=== PATIENT | female | born 1990 | race Caucasian/White ===

== ENCOUNTER 2023-08-12 03:07 | Outpatient (CLI) | payer MEDICAID, SELFPAY ==
[2023-08-12 15:00] LABS: Panorama Kit Sent via Fed Ex
[2023-08-12 15:09] LABS: Abs Immature Grans 0.04 10^3/uL (0.0-0.06); Absolute Basophil Count 0.03 10^3/uL (0.0-0.2); Absolute Eosinophil Count 0.04 10^3/uL (0.0-0.7); Absolute Monocyte Count 0.49 10^3/uL (0.1-0.8); Absolute Neutrophil Count 6.36 10^3/uL (1.2-6.7); Basophils % 0.3 %; Eosinophils % 0.5 %; HCT 37.7 % (36.0-46.0); HGB 12.8 g/dL (11.2-15.7); Immature Grans % 0.5 %; Lymphocytes % 19.6 %; MCH 29.2 pg (27.0-33.0); MCV 86 fL (80-95); Monocytes % 5.7 %; Neutrophils % 73.4 %; Platelet Count 195 10^3/uL (130-400); RBC 4.39 10^6/uL (3.93-5.22); RDW 12.2 % (11.7-14.6); RDW-SD 38.7 fL; WBC 8.66 10^3/uL (4.4-10.8)
[2023-08-12 15:51] LABS: Glucose,1 Hr (Glucola) 115 mg/dL (80-140)
[2023-08-15 09:35] LABS: Hepatitis C Ab w Rflx HCV PCR Negative (Negative)
[2023-08-15 09:53] LABS: HIV-1/2 Ag & Ab Screen Negative (Negative)
[2023-08-15 12:52] LABS: Hepatitis B Surface Ag Negative (Negative)
[2023-08-15 14:52] LABS: Varicella IgG Antibody Positive (See Note)
[2023-08-15 14:56] LABS: Rubella IgG Ab (UVM) Positive (See Note)
[2023-08-16 16:18] LABS: Syphilis IgG w/Reflex Nonreactive (Nonreactive)
== END 2023-08-12 03:08 | disposition home or self-care (01) ==
LOC: LBO 03:07
PROVIDERS: Advanced Practice Midwife; Visit Provider Advanced Practice Midwife
DX: Z34.91 Encounter for supervision of normal pregnancy, unspecified, first trimester (principal); Z34.90 Encounter for supervision of normal pregnancy, unspecified, unspecified trimester
CPT/HCPCS: 36415; 82950; 86787; 86803; 86850; 86900; 86901; 87340; 87389; 85025; 86762; 86780

== ENCOUNTER 2023-08-12 14:42 | Outpatient (REF) | payer MEDICAID, SELFPAY ==
[2023-08-15 12:50] LABS: Chlamydia Result Negative (Negative); GC Result Negative (Negative)
== END 2023-08-12 14:43 | disposition home or self-care (01) ==
LOC: LBN 14:42
PROVIDERS: Visit Provider Advanced Practice Midwife
DX: Z34.92 Encounter for supervision of normal pregnancy, unspecified, second trimester (principal); Z3A.11 11 weeks gestation of pregnancy; Z11.3 Encounter for screening for infections with a predominantly sexual mode of transmission
CPT/HCPCS: 87491; 87591; 87086

== ENCOUNTER 2023-10-06 02:28 | Outpatient (CLI) | payer BC, SELFPAY ==
--- NOTE | 2023-10-06 07:45 | DI.US_ITS ---
Exam(s) US OB 2-3 TRIMESTER EXAM: US OB 2-3 TRIMESTER CLINICAL HISTORY: , SURVEY, Z34.90. TECHNIQUE: Transabdominal obstetrical ultrasound performed. COMPARISON: US POCUS EXAM from 07/19/2023 FINDINGS: Number of fetuses: One. position: Vertex. Placental grade: 1 Placental location: Anterior. No evidence of previa. BIOMETRIC DATA: BPD: 45mm = 19+ 3 weeks HC: 173mm = 19+ 6 weeks AC: 146mm = 20+ 0 weeks FL: 35mm = 20+ 6 weeks Cisterna Magna: 1.9 mm Cerebellum: 1.7 cm EFW: 343 grms 96% Composite Age: 20+ 0 weeks EDC by US: 23 February 2024 Heart Rate: 147BPM Amniotic fluid : Amount of fluid is within normal limits. ANATOMICAL SURVEY: Four-chambered heart: Unremarkable. LVOT: Unremarkable. RVOT: Unremarkable. Left-sided stomach: Unremarkable. urinary bladder: Unremarkable. Bilateral kidneys: Unremarkable. Three-vessel cord: Not well seen Cord insertion: Not well seen Posterior fossa:Unremarkable. ventricles: Unremarkable. nose: Not well seen lips: Not well seen palate: Unremarkable. spine: Unremarkable. Two arms and two legs: Unremarkable. IMPRESSION: 1. Single live intrauterine gestation as above. 2. Normal anatomic survey. profile, three-vessel cord and cord insertion were not well s een. Patient is scheduled to return 13 October 2023. Additional imaging needed DATA REPOSITORY:
== END 2023-10-06 02:48 ==
PROVIDERS: Visit Provider Advanced Practice Midwife
DX: Z34.90 Encounter for supervision of normal pregnancy, unspecified, unspecified trimester (principal)
CPT/HCPCS: 76805

== ENCOUNTER 2023-12-06 02:51 | Outpatient (CLI) | payer BC, SELFPAY ==
[2023-12-06 10:17] LABS: Absolute Basophil Count 0.04 10^3/uL (0.0-0.2); Absolute Eosinophil Count 0.07 10^3/uL (0.0-0.7); Absolute Lymphocyte Count 1.51 10^3/uL (1.2-3.4); Absolute Monocyte Count 0.46 10^3/uL (0.1-0.8); Absolute Neutrophil Count 7.82 10^3/uL (1.2-6.7); Basophils % 0.4 %; Eosinophils % 0.7 %; HCT 37.2 % (36.0-46.0); HGB 12.3 g/dL (11.2-15.7); MCH 29.9 pg (27.0-33.0); MCHC 33.1 % (32.0-36.0); MCV 91 fL (80-95); MPV 10.7 fL (8.0-11.0); Monocytes % 4.6 %; Neutrophils % 77.3 %; Platelet Count 154 10^3/uL (130-400); RBC 4.11 10^6/uL (3.93-5.22); RDW 12.2 % (11.7-14.6); RDW-SD 40.3 fL
[2023-12-06 10:30] LABS: Glucose,1 Hr (Glucola) 151 mg/dL (80-140)
== END 2023-12-06 02:52 | disposition home or self-care (01) ==
LOC: LBO 02:52
PROVIDERS: Visit Provider Obstetrics & Gynecology
DX: Z34.92 Encounter for supervision of normal pregnancy, unspecified, second trimester (principal)
CPT/HCPCS: 36415; 82950; 85025

== ENCOUNTER 2023-12-16 01:04 | Outpatient (CLI) | payer BC, SELFPAY ==
[2023-12-16 10:29] LABS: Glucose 1 Hour 194 mg/dL
[2023-12-16 12:33] LABS: Glucose 3 Hour 110 mg/dL
== END 2023-12-16 01:05 | disposition home or self-care (01) ==
LOC: LBO 01:05
PROVIDERS: Visit Provider Obstetrics & Gynecology
DX: R73.09 Other abnormal glucose (principal)
CPT/HCPCS: 36415; 82951

== ENCOUNTER 2024-01-10 01:12 | Outpatient (CLI) | payer BC, SELFPAY ==
--- NOTE | 2024-01-10 07:15 | DI.US_ITS ---
Exam(s) US OB RATNA WEIGHT EXAM: US OB RATNA WEIGHT CLINICAL HISTORY: size greater than dates,GEST DIABETES,o24.419. TECHNIQUE: Transabdominal obstetrical ultrasound performed. COMPARISON: US POCUS EXAM from 07/19/2023 US US OB 2-3 TRIMESTER from 10/06/2023 US US OB F/U FACIAL/LVOT/RVOT from 10/13/2023 FINDINGS:: Number of fetuses: 1 position: CEPHALIC Placental location: ANTERIOR No evidence of previa. BIOMETRIC DATA: BPD: 8.47cm, 34weeks 1day HC: 30.66cm, 34weeks 1day AC: 29.3cm, 33weeks 2days FL: 6.33cm, 32weeks 5days EFW: 2,162.91g, 4lb 13.15oz, 54.5% Composite Age: 33weeks 4days LETI: 02/24/2024 Heart Rate: 178bpm Amniotic fluid index: 17.39cm. Visually, amount of fluid is within normal limits. IMPRESSION: size and weight are within the expected range. DATA REPOSITORY:
== END 2024-01-10 01:32 ==
LOC: DI 01:12
PROVIDERS: Visit Provider Obstetrics & Gynecology
DX: O24.410 Gestational diabetes mellitus in pregnancy, diet controlled (principal); Z3A.34 34 weeks gestation of pregnancy
CPT/HCPCS: 76816

== ENCOUNTER 2024-02-06 14:14 | Outpatient (REF) | payer BC, SELFPAY ==
--- NOTE | 2024-02-09 11:39 | W.NUTRFU ---
Date of service: 02/09/24 Time of Service: 11:49 Nutrition Note NOTE: received referral for pt due to elevated glucose in the last 3-4 weeks of gestation. provider request contacting pt nola to review diet mgt as pt would like to avoid insulin the last few weeks of . pregravid weight : 99.1kg height: 68 Pregravid BMI:33.1 Pt with weight gain of ~24lbs at this stage of , exceeding wt gain recommendation of 11-20lbs. Contacted pt over the phone on 02/06 while I was working in the kitchen and was agreeable to email summary with resources sent to her to help with diet modification with goal for total carb intake of 175-200g total carbohydrates per day, keeping fiber at least 25g and added sugar at limit of 25g. Instructions given to seek slower-digesting carbs that are high in fiber and not to eat carbs by themselves - pair with protein and fiber to help with slower rise in glucose. Instructed to avoid sugar in beverages and allow 2-3 hours between eating. Highly encouraged walking after meals or any approved activity to help with glucose utilization after consumption. Pt has my contact info to reach out for any questions Time Spent in Nutritional Counseling and Treatment: 10 minutes
== END 2024-02-06 14:15 | disposition home or self-care (01) ==
LOC: LBN 14:14
PROVIDERS: Visit Provider Obstetrics & Gynecology
DX: Z34.93 Encounter for supervision of normal pregnancy, unspecified, third trimester (principal)
CPT/HCPCS: 00123; 87081

== ENCOUNTER 2024-02-24 08:32 | Inpatient (IN) | payer BC, SELFPAY ==
[2024-02-24] VITALS (70 sets, daily range): BP systolic 107–125; BP diastolic 62–87; PULSE 0–108; RESP 12–18; TEMP 36.6–37; O2SAT 92–100; BMI 37.4
[2024-02-24 09:16] LABS: HGB 12.5 g/dL (11.2-15.7); MCH 29.8 pg (27.0-33.0); MCHC 33.8 % (32.0-36.0); MCV 88 fL (80-95); MPV 11.2 fL (8.0-11.0); Platelet Count 125 10^3/uL (130-400); RBC 4.19 10^6/uL (3.93-5.22); RDW 12.4 % (11.7-14.6); RDW-SD 39.8 fL; WBC 9.72 10^3/uL (4.4-10.8)
--- NOTE | 2024-02-24 10:03 | HPE_ITS ---
Date of service: 02/24/24 Time of Service: 10:03 Assessment and Plan Assessment and plan (1) Gestational diabetes: Status: Acute Assessment and plan: A: 33y.o at 39w2d IOL A1GDM well-controlled, EFW 54%ile at 32wks EFW 7.5#, VTX MIMI GBS Negative Expecting Baby Girl BCM: 8wk PP Mirena P: Admit for labor induction with Cook's cervical balloon and Misoprostol 50mcg. Intermittent Monitoring per protocol. Pain management per patient request. Q4hr blood sugar monitoring once in active labor. anticipated (2) : Status: Acute OB-HPI Labor/Delivery History of Present Illness Reason for Visit: IOL Chief Complaint: Other (None, scheduled IOL). LETI Calculator Estimated Delivery Date Method Current WG Current Estimate 02/29/24 Ultrasound #1 39w 2d Other Estimates 02/20/24 LMP (Uncertain) 40w 4d Comments: Here today for IOL s/t A1GDM. Reviewed IOL methods, recommendations and risks based on Vogt score of 4. Discussed her moderate risk of shoulder dystocia and she was given to opportunity to ask questions. She is here today with LIDIA Burgess. planning Mirena and an epidural for pain management. Pelvis proven to 7lb3oz after IOL with one dose of Misoprostol. History of Present Expected Delivery Route/Plan JEANETTE - , changed to CNM @ 37 wks FOB/ : Aditya Zee (2nd baby together) BG Planning epidural. PP BCM: Mirena at 8wkPP GDM: IOL @ 39 wks, booked for 02/24/24 Specific Issues/Plan 1. BMI 33- early PSL=252 - 32w u/s for S> . EFW 54%tile. RATNA 17, VTX. 2. History of depression, ativan prescription PRN. 3. Colleen and her brother born with extra digits, cousin with spina bifida, FOB's nephew with trsiomy , offered level 2 US and genetic counseling, Colleen declines. 5a. anatomy survey 10/05 incomplete, returned 10/12, all nml, survey completed 4. A1GDM (12/21/23) - well controlled currently with diet changes. 01/10/24 decrease testing to QID twice a week. -02/06/24: multiple elevated 2hr pps and occasional elevated fasting. Pt says she will make diet changes, otherwise may need to consider insulin. 02/13/24: BG well controlled with diet changes, plan 39wk IOL 02/23 cfDNA low risk x5 female, will obtain records from [facility] re: previous CF/SMA: no indication in records from [facility] of SMA or CF testing 5 Ps neg Assessment: History Reviewed & Current Informed Consent Informed Consent: Induction of Labor Review of Systems All systems reviewed & are unremarkable except as noted in HPI and below PFSH All Active Problems (Updated 02/24/24 @ 10:10 by Jennifer Rowe CNM) Gestational diabetes (Acute) Begin testing 12/16/2023 BMI 33.0-33.9,adult (Acute) (Acute) Medical History 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 Depression Lexapro in the past, xanax PRN, ativan PRN during Surgical History H/O toe surgery Family History Father Hypertension Cancer sarcoma Heart murmur Maternal Grandfather Prostate cancer Maternal Uncle Prostate cancer Maternal Uncle Prostate cancer Maternal Uncle Prostate cancer Social History Smoking/Tobacco Use Status: Never Smoking risk assessment performed?: Yes Alcohol Intake: never Drug use: Never Substance use type: does not use Adopted: No Caregiver/Support person: No Foster care: No Household members: spouse and children Housing: apartment Number of Children: 1 Communication Needs: None Education Level: college Details: Bachelor's Do you need help understanding health information?: Rarely current occupation: [employer] Pets and animals: Yes (1) Pets and animals: dog(s) Sexually active: Yes Do you think of yourself as: straight/heterosexual Current gender identity: female What is your relationship status?: How often do you talk on the phone with friends or family?: three or more times per week How often do you get together with friends or relatives?: three or more times per week How often do you attend mandaen or muslim services?: decline to answer Do you belong to any clubs or organized social groups?: no Panel score (0-1 are the most socially isolated patients): 2 What type of physical activity do you participate in: regular exercise Duration: 30-45 minutes/day Frequency: 3-[address]/Sabianism: None Seatbelt use: always Helmet use: Yes Helmet use: always Drive intox or ride w/intox customer service driver: No Do you feel safe at home: Yes Do you feel safe in your relationship?: Yes Female Reproductive History Menstrual Age of Menarche: 15 control method: none History History 2 Para 1 Hx # Term Pregnancies 1 Multiple births Hx # Pregnancies Ectopic pregnancies AB induced Hx Number of Living Children 1 AB spontaneous Past Pregnancies Del. Date GA/Weeks # Preg Succ Route Wgt Sex Labor Lgth Anesth esia Location [facility] 12/08/21 41 No Yes vaginal 7 lb 3 oz Female 8 [place], [place], induction of labor with misoprostol Delivery Date: 12/08/21 Last Updated by: Heidy Rothman CNM [place] 2 - vessel cord Meds Allergies and Home Medications Allergies Allergy/AdvReac Type Severity Reaction Status Date / Time No Known Allergies Allergy Verified 02/22/24 12:41 Home Medications ?Medication ?Instructions ?Recorded ?Confirmed ?Type albuterol sulfate 90 mcg/actuation 1 inh inhalation ONCE 07/06/23 02/24/24 History aerosol inhaler famotidine 20 mg tablet 20 mg PO DAILY 07/06/23 02/24/24 History (Zantac-360 (famotidine)) lorazepam 0.5 mg tablet (Ativan) 0.5 mg PO DAILY PRN 07/06/23 02/24/24 History vit 168-iron 27 mg-folic cap PO 07/06/23 02/22/24 History acid 800 mcg-omega3 235 mg capsule (One-A-Day -1) blood-glucose meter #1 ea 12/16/23 02/24/24 Rx lancets #100 ea 01/10/24 02/24/24 Rx blood sugar diagnostic (Blood #50 ea 02/13/24 02/24/24 Rx Glucose Test strips) Exam Physical Exam Vital signs: Temp Pulse Resp BP 97.9 F 108 H 12 125/76 02/24/24 08:39 02/24/24 08:39 02/24/24 08:39 02/24/24 08:39 Vital Signs Reviewed: Yes Constitutional Constitutional: no acute distress Detailed Labor and Delivery Exam Dilation: 1.5 Effacement (%): 50 station: -4 Position: MIMI Cervix position: mid Consistency: medium Vogt Score: Cervical Points Exam 0 1 2 3 Dilation Closed 1-2cm 3-4 cm 5-6cm Effacement 0-30% 40-50% 60-70% 80% Consistency Firm Medium Soft Station -3 -2 -1,0 +1,+2 Position Posterior Mid Anterior VOGT Score(Cervical Ripeness Score): 4 Amniotic Membrane Status: Intact Monitor Mode: External Contraction Frequency(min): none Fetus A Heart Rate Baseline: 140 Monitor Accelerations: Present Monitor Decelerations: None Variability: Moderate (6-25 BPM) Presentation: Vertex Categories: Category I Est. Weight: 7 lb 8 oz Respiratory Exam Respiratory Exam: Normal Cardiovascular Exam Cardiovascular Exam: Normal Detailed Exam External: Present normal urethra appearance Extremities Exam Extremities Exam: Normal (minimal edema bilaterally) Results Results Group Beta Strep: Negative Blood Type: B+ Rubella Status: Immune Varicella Immunity: Immune Abnormal Lab Findings: Abnormal Labs 02/24/24 09:00 Plt Count 125 L MPV 11.2 H Risk Assessment Risk for Shoulder Dystocia Historical/Initial OB: POSITIVE FOR: Pre- BMI>30; NEGATIVE FOR: Pelvic Abnormality, Previous Shoulder Dystocia or Previous Macrosomia 36 Weeks: POSITIVE FOR: Current Gestational DM 40 Weeks: NEGATIVE FOR: EFW> 4500 gms, Maternal Weight Gain >40lb or Post Dates Increased Risk?: Yes Counseling: completed 02/22/24 Delivery Plan @ 36wks: IOL 39wks Risk for Pre-Eclampsia Yes, if one or more: NEGATIVE FOR: Hx Pre-E/Gest HTN, Chronic HTN, Multiple Gestation, Pre-gestational DM, Renal Disease, Systemic Lupus or APA Syndrome Yes, if 2 or more: POSITIVE FOR: BMI>30; NEGATIVE FOR: Nulliparity, Age>= 35 yrs, >10yr btwn pregnancies, ethinicty, Mother/Sister w/ Pre-E or Previous IUGR Risk for Post- Hemorrhage Initial: NEGATIVE FOR: Multiple Gestation, Previous PPH, Known Clotting Deficiency, Grand Multiparity or Anticoagulation 40 Weeks: POSITIVE FOR: Low platelets (thrombocytopenia) (125); NEGATIVE FOR: Anemia, hgb<10, Gestation HTN or Pre-E, Polyhydraminios or EFW>4500gms Counseled re: Active Management: Yes Risks Reviewed Risks Reviewed Upon Admission: Yes
[2024-02-24] MEDS: miSOPROStol 25 MCG TAB 50 MCG PO ×3 (10:28→18:46)
--- NOTE | 2024-02-24 14:49 | W.PM.OBNL1 ---
Date of service: 02/24/24 Time of Service: 14:49 Informed Consent Informed Consent: Induction of Labor Pelvic Exam Comments: SVE deferred Contractions Contraction Frequency(min): irregular Fetus A Monitor: External (US) Heart Rate Baseline: 145 Presentation: Vertex Variability: Moderate (6-25 BPM) Categories: Category I FHR Rhythm: Regular Characteristics: Normal Accelerations: Present Decelerations: None Amniotic Membrane Status: Intact Assessment and Plan Assessment and plan (1) Gestational diabetes: Status: Acute Assessment and plan: A: at 39wk2d, IOL A1GDM s/p Cook's Balloon and Miso x 1 P: Continue Misoprostol per protocol. Reassess 4 hours Objective Abnormal lab results 02/24/24 Range/Units 09:00 Plt Count 125 L (130-400) 10^3/uL MPV 11.2 H (8.0-11.0) fL Temp Pulse Resp BP 97.9 F 89 12 125/76 02/24/24 08:39 02/24/24 10:34 02/24/24 08:39 02/24/24 08:39 Laboratory Results WBC 9.72 10^3/uL (4.4-10.8) 02/24/24 09:00 RBC 4.19 10^6/uL (3.93-5.22) 02/24/24 09:00 Hgb 12.5 g/dL (11.2-15.7) 02/24/24 09:00 Hct 37.0 % (36.0-46.0) 02/24/24 09:00 MCV 88 fL (80-95) 02/24/24 09:00 MCH 29.8 pg (27.0-33.0) 02/24/24 09:00 MCHC 33.8 % (32.0-36.0) 02/24/24 09:00 RDW 12.4 % (11.7-14.6) 02/24/24 09:00 Plt Count 125 10^3/uL (130-400) L 02/24/24 09:00 MPV 11.2 fL (8.0-11.0) H 02/24/24 09:00 ABO/Rh B Positive 02/24/24 09:00 Antibody Screen NEGATIVE 02/24/24 09:00 Vital Signs Reviewed: Yes Notable Details: mild thrombocytopenia Subjective Patient Reports: No new Complaints Interval history since last seen: Patient ambulated in hallway and in room. Cervical balloon spontaneously fell out at 1429. +bloody show. Feeling intermittent contractions, no regular pattern. Results Hemoglobin/Hematocrit: Hgb 12.5 g/dL (11.2-15.7) 02/24/24 09:00 Hct 37.0 % (36.0-46.0) 02/24/24 09:00 Abnormal Lab Findings: Abnormal Labs 02/24/24 09:00 Plt Count 125 L MPV 11.2 H
--- NOTE | 2024-02-24 17:06 | W.PM.OBNL1 ---
Date of service: 02/24/24 Time of Service: 17:06 Informed Consent Informed Consent: Induction of Labor Pelvic Exam Dilation: 4 Effacement (%): 50 station: -3 Position: LOT Cervix Position: mid Consistency: medium BISHOPS Score(Cervical Ripeness Score): 5 Contractions Monitor Mode: External Contraction Frequency(min): irregular Intensity: Mild Fetus A Monitor: External (US) Heart Rate Baseline: 135 Variability: Moderate (6-25 BPM) Categories: Category I FHR Rhythm: Regular Characteristics: Normal Accelerations: 15 X 15 (prolonged accel x 2.5min at 1556) Decelerations: None Amniotic Membrane Status: Intact Assessment and Plan Assessment and plan (1) Gestational diabetes: Status: Acute Assessment and plan: A: IOL A1GDM Not in Labor S/p Cervical Balloon and Miso x 2 Next dose due 1830 Vital Score 5 P: Continue cervical ripening until vital score of 6, discussed AROM and Pitocin as next steps in IOL with progressive cervical change. Reassess 2-4 hours. Objective Abnormal lab results 02/24/24 Range/Units 09:00 Plt Count 125 L (130-400) 10^3/uL MPV 11.2 H (8.0-11.0) fL Temp Pulse Resp BP Pulse Ox 98.6 F 88 18 118/69 98 02/24/24 15:36 02/24/24 15:39 02/24/24 15:36 02/24/24 15:36 02/24/24 15:36 Laboratory Results WBC 9.72 10^3/uL (4.4-10.8) 02/24/24 09:00 RBC 4.19 10^6/uL (3.93-5.22) 02/24/24 09:00 Hgb 12.5 g/dL (11.2-15.7) 02/24/24 09:00 Hct 37.0 % (36.0-46.0) 02/24/24 09:00 MCV 88 fL (80-95) 02/24/24 09:00 MCH 29.8 pg (27.0-33.0) 02/24/24 09:00 MCHC 33.8 % (32.0-36.0) 02/24/24 09:00 RDW 12.4 % (11.7-14.6) 02/24/24 09:00 Plt Count 125 10^3/uL (130-400) L 02/24/24 09:00 MPV 11.2 fL (8.0-11.0) H 02/24/24 09:00 ABO/Rh B Positive 02/24/24 09:00 Antibody Screen NEGATIVE 02/24/24 09:00 Subjective Interval history since last seen: Coping: comfortable, infrequent contractions after 2 doses of misoprostol, some bloody show after Cook's balloon expelled, Activity: up OOB, walking, using ball FOB Aditya at bedside Results Hemoglobin/Hematocrit: Hgb 12.5 g/dL (11.2-15.7) 02/24/24 09:00 Hct 37.0 % (36.0-46.0) 02/24/24 09:00 Abnormal Lab Findings: Abnormal Labs 02/24/24 09:00 Plt Count 125 L MPV 11.2 H
--- NOTE | 2024-02-24 17:48 | ANES.PREOP_ITS ---
General Info Date of Service Date Performed: 02/24/24 Height: 5 ft 8 in Weight: 111.584 kg Body Mass Index (BMI): 37.4 Meds Allergies and Home Medications Allergies Allergy/AdvReac Type Severity Reaction Status Date / Time No Known Allergies Allergy Verified 02/22/24 12:41 Home Medication ?Medication ?Instructions ?Recorded albuterol sulfate 90 mcg/actuation 1 inh inhalation ONCE 07/06/23 aerosol inhaler famotidine 20 mg tablet 20 mg PO DAILY 07/06/23 (Zantac-360 (famotidine)) lorazepam 0.5 mg tablet (Ativan) 0.5 mg PO DAILY PRN 07/06/23 vit 168-iron 27 mg-folic cap PO 07/06/23 acid 800 mcg-omega3 235 mg capsule (One-A-Day -1) blood-glucose meter #1 ea 12/16/23 lancets #100 ea 01/10/24 blood sugar diagnostic (Blood #50 ea 02/13/24 Glucose Test strips) Current Visit Medications: Current Medications Generic Name Dose Route Start Last Admin Trade Name Freq PRN Reason Stop Dose Admin Famotidine 20 mg 02/25/24 08:30 Famotidine 20 Mg Tab PO DAILY CASS Ringer's Solution 1,000 mls @ 125 mls/hr 02/25/24 06:00 IV INFUSION [facility] IV Miscellaneous Supplies 1 each 02/24/24 08:45 Iv Access IV DIRECTED CASS Misoprostol 50 mcg 02/24/24 10:00 02/24/24 14:45 Misoprostol 25 Mcg Tab PO 50 mcg Q4H CASS Administration Sodium Chloride 0 ml 02/24/24 08:36 Normal Saline Flush 10 Ml Syr IVP PRN PRN Sodium Chloride 0 ml 02/24/24 08:36 Normal Saline Flush 10 Ml Syr IVP PRN PRN Sodium Chloride 0 ml 02/24/24 20:00 Normal Saline Flush 10 Ml Syr IVP BID CASS Sodium Chloride 0 ml 02/24/24 08:36 Normal Saline 10 Ml Vial IJ DIRECTED PRN Terbutaline Sulfate 0.25 mg 02/24/24 09:34 Terbutaline 1 Mg/Ml Vial SC PRN PRN Zolpidem Tartrate 10 mg 02/24/24 21:00 Zolpidem 5 Mg Tab PO 02/25/24 06:00 2100 CASS PFSH Active Problems Active Problems: Problem Status Onset Code Gestational diabetes Acute O24.419 BMI 33.0-33.9,adult Acute Z68.33 Acute Z34.90 Medical History Medical History 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 Date GA/Weeks # Preg Succ Route Wgt Sex Labor Lgth Anesth esia Location [facility] 12/08/21 41 No Yes vaginal 3260.195 g Female 8 [place], [place], induction of labor with misoprostol Delivery Date: 12/08/21 Last Updated by: Heidy Rothman CNM [place] 2 - vessel cord Vital Signs and Lab Results Vital Signs Most Recent Vital Signs in EMR: Most Recent Vital Signs Temp Pulse Resp BP Pulse Ox 37.0 C 88 18 118/69 98 02/24/24 15:36 02/24/24 15:39 02/24/24 15:36 02/24/24 15:36 02/24/24 15:36 Lab Results 02/24/24 09:00 Blood Type / Crossmatch: 2 Antibody Screen NEGATIVE 02/24/24 Complete Blood Count: 2 White Blood Count 9.72 10^3/uL (4.4-10.8) 02/24/24 09:00 Red Blood Count 4.19 10^6/uL (3.93-5.22) 02/24/24 09:00 Hemoglobin 12.5 g/dL (11.2-15.7) 02/24/24 09:00 Hematocrit 37.0 % (36.0-46.0) 02/24/24 09:00 Platelet Count 125 10^3/uL (130-400) L 02/24/24 09:00 Complete Metabolic Panel: 2 No Data to Display Liver Function Panel: 2 No Data to Display Coagulation Panel: 2 No Data to Display Cardiac Panel: 2 No Data to Display Arterial Blood Gas: 2 No Data to Display Venous Blood Gas: 2 No Data to Display Pancreas Panel: 2 No Data to Display Thyroid Panel: 2 No Data to Display Infectious Disease: 2 No Data to Display Blood Cultures: 2 No Data to Display Toxicology Panel: 2 No Data to Display Panel: 2 No Data to Display Anesthesia Assessment and Plan Anesthesia History Personal History: No History of General Anesthesia Family History: No Family History of Anesthesia Complications Exercise Tolerance Exercise Tolerance: Metabolic Equivalents>4 Pertinent Negatives Pertinent Negatives: No Major Cardiovascular Symptoms or Complaints and No Major Pulmonary Symptoms or Complaints Cardiac & Pulmonary Exam Cardiac Exam: Normal S1/S2 Heart Sounds Pulmonary Exam: Clear Bilateral Breath Sounds Implantable Cardiac Device Does patient have a Pacemaker or an ICD?: No Airway Exam Known Difficult Airway: No Mallampati Class: 2 Mouth Opening: Narrow (< 3cm) Thyromental Distance: Greater than 3 cm Neck Range of Motion: Full ROM Neck Circumference: Normal Teeth Condition: Normal Dentition ASA Classification ASA Score: ASA 2 Emergency Case?: No NPO Status NPO Status: NPO Clears >2 hours, Solids >8 hours Status Status: Confirmed Anesthesia Plan Resuscitation Status: Full Code Anesthesia Technique: Epidural Anesthesia Airway Planned: Natural Airway Monitors Used: Standard Monitors Preoperative Comments:: Previous epidural placement in [facility] without incident. Patient is current induction, will page with epidural requested.
--- NOTE | 2024-02-24 20:53 | W.PM.OBNL1 ---
Date of service: 02/24/24 Time of Service: 20:53 Informed Consent Informed Consent: Induction of Labor Pelvic Exam Dilation: 5 Effacement (%): 75 station: -2 Cervix Position: posterior Consistency: medium BISHOPS Score(Cervical Ripeness Score): 7 Contractions Contraction Frequency(min): irregular Contraction Duration(sec): 60-70 Intensity: Mild/Moderate Fetus A Monitor: External (US) Heart Rate Baseline: 145 Variability: Moderate (6-25 BPM) Categories: Category I FHR Rhythm: Regular Accelerations: Present Decelerations: None Amniotic Membrane Status: Ruptured (clear, ) Rupture Method: Artifical Amniotic Fluid: Winters Tinged Amount: minimal Date of Membrane Rupture: 02/24/24 Time of Membrane Rupture: 20:33 Assessment and Plan Assessment and plan (1) Gestational diabetes: Status: Acute Assessment and plan: A: A1GDM IOL AROM 2032 S/P Miso x3 P: Start Pitocin @ 2240 or when 4 hours after last dose of Misoprostol Early epidural anticipated (2) : Status: Acute Objective Abnormal lab results 02/24/24 Range/Units 09:00 Plt Count 125 L (130-400) 10^3/uL MPV 11.2 H (8.0-11.0) fL Temp Pulse Resp BP Pulse Ox 98.6 F 85 18 120/87 98 02/24/24 15:36 02/24/24 20:40 02/24/24 15:36 02/24/24 20:40 02/24/24 15:36 Laboratory Results WBC 9.72 10^3/uL (4.4-10.8) 02/24/24 09:00 RBC 4.19 10^6/uL (3.93-5.22) 02/24/24 09:00 Hgb 12.5 g/dL (11.2-15.7) 02/24/24 09:00 Hct 37.0 % (36.0-46.0) 02/24/24 09:00 MCV 88 fL (80-95) 02/24/24 09:00 MCH 29.8 pg (27.0-33.0) 02/24/24 09:00 MCHC 33.8 % (32.0-36.0) 02/24/24 09:00 RDW 12.4 % (11.7-14.6) 02/24/24 09:00 Plt Count 125 10^3/uL (130-400) L 02/24/24 09:00 MPV 11.2 fL (8.0-11.0) H 02/24/24 09:00 ABO/Rh B Positive 02/24/24 09:00 Antibody Screen NEGATIVE 02/24/24 09:00 Vital Signs Reviewed: Yes Subjective Interval history since last seen: No significant manager of change the last 4 hours, occasional irregular contractions, last dose of misoprostol at 1840. Good cervical change to 5/75/-2, recommended AROM and Pitocin. Reviewed risks, alternatives and benefits, all patient questions answered. Successful AROM 2032. 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 Results Hemoglobin/Hematocrit: Hgb 12.5 g/dL (11.2-15.7) 02/24/24 09:00 Hct 37.0 % (36.0-46.0) 02/24/24 09:00 Abnormal Lab Findings: Abnormal Labs 02/24/24 09:00 Plt Count 125 L MPV 11.2 H
[2024-02-24] MEDS: Normal Saline Flush 10 ML SYR IVP (21:15)
[2024-02-24] MEDS: Lactated Ringers 500 ML IV (21:50)
--- NOTE | 2024-02-24 22:48 | PGE_ITS ---
Date of service: 02/24/24 Time of Service: 22:48 Informed Consent Informed Consent: Induction of Labor Pelvic Exam Comments: deffered Contractions Monitor Mode: External Contraction Frequency(min): 3-4 Contraction Duration(sec): 40-50 Intensity: Mild/Moderate Fetus A Monitor: External (US) Heart Rate Baseline: 140 Variability: Moderate (6-25 BPM) Categories: Category I Accelerations: Absent Decelerations: None Amniotic Membrane Status: Ruptured Assessment and Plan Assessment and plan (1) Gestational diabetes: Status: Acute Assessment and plan: A: A1GDM IOL AROM 2032 Cat [address] P: Start Pitocin at 2 mU/min, reassess 4-6hrs. Patient and FOB to rest. (2) : Status: Acute Objective Abnormal lab results 02/24/24 Range/Units 09:00 Plt Count 125 L (130-400) 10^3/uL MPV 11.2 H (8.0-11.0) fL Temp Pulse Resp BP Pulse Ox 98.6 F 85 18 113/70 100 02/24/24 15:36 02/24/24 22:45 02/24/24 15:36 02/24/24 22:45 02/24/24 22:44 Laboratory Results WBC 9.72 10^3/uL (4.4-10.8) 02/24/24 09:00 RBC 4.19 10^6/uL (3.93-5.22) 02/24/24 09:00 Hgb 12.5 g/dL (11.2-15.7) 02/24/24 09:00 Hct 37.0 % (36.0-46.0) 02/24/24 09:00 MCV 88 fL (80-95) 02/24/24 09:00 MCH 29.8 pg (27.0-33.0) 02/24/24 09:00 MCHC 33.8 % (32.0-36.0) 02/24/24 09:00 RDW 12.4 % (11.7-14.6) 02/24/24 09:00 Plt Count 125 10^3/uL (130-400) L 02/24/24 09:00 MPV 11.2 fL (8.0-11.0) H 02/24/24 09:00 ABO/Rh B Positive 02/24/24 09:00 Antibody Screen NEGATIVE 02/24/24 09:00 Subjective Interval history since last seen: Successful epidural now in place, [employer] currently bolusing epidural per patient's lateral discomfort. Contractions q3-4 min and stronger. Results Hemoglobin/Hematocrit: Hgb 12.5 g/dL (11.2-15.7) 02/24/24 09:00 Hct 37.0 % (36.0-46.0) 02/24/24 09:00 Abnormal Lab Findings: Abnormal Labs 02/24/24 09:00 Plt Count 125 L MPV 11.2 H
[2024-02-24] MEDS: Oxytocin/Normal Saline 30 UNIT/500 ML BAG 2 UNITS IV (22:50)
[2024-02-24] MEDS: FentaNYL/ROPIvacaine 2 mcg/ml and 0.1% 200 ML CADD Cassette EP (22:51)
--- NOTE | 2024-02-24 23:02 | ANES.NEUR_ITS ---
Epidural/Spinal Catheter Date Performed: 02/24/24 Procedure Start: 22:20 Procedure Stop: 22:53 Requesting Provider: Jennifer Rowe Procedure Location: Obstetrics Reason Performed: Labor Epidural Standard Monitors Applied: Blood Pressure, SpO2 and See EMR for corresponding vital signs Patient Position: Sitting Sedation Given (Indicate Dose Given): No Sedation given Patient Mental Status: Awake Sterility: Hand Hygiene, Surgical Cap, Surgical Mask, Sterile Gloves, Sterile Drape/Sheet and Chlorhexidine Procedure Location: L2-L3 Interspace Epidural Needle: Tuohy 18 Gauge Needle Length: 3.5 Inch Needle Approach: Midline Epidural Procedure: Skin Prepped, Sterile Drape Placed, 1% Lidocaine to skin and subcutaneous tissue with 25G needle, Tuohy Needle placed, KASANDRA to Saline Used, Epidural Catheter Placed, Negative Heme, Negative CSF Flow and Tuohy Needle Removed Catheter Placed?: Catheter Placed Test Dose (Indicate Dose Given): 3ml 1.5% Lidocaine with 1:200K Epinephrine Given Loss of Resistance Depth (cm): 9 Catheter depth at skin (cm): 16 Dressing: [place]aview Dressing Placed and Mastisol Used Epidural Provider Bolus (Indicate Dose Given): Total bolus dose given in 3- 5 ml divided doses and Total Ropivacaine 0.1% with Fentanyl 2mcg/ml Given from pump. (ml) Dose:: 13mL Additives (Indicate Dose Given ): None Infusion Medication: No Infusion Started Block Level: N/A Paresthesia: Right Paresthesia Duration: Transient (x2, less than 1cm into the skin) Ultrasound: Not Used Number of Attempts (See previous attempts in note section): 3 Procedure Tolerated: No Complications Procedure Outcome: Successful Procedure Comment:: First two attempts I applied LA to the skin and then after initially placing the touhy needle, the patient reported right sided paresthesia. Position change made after second attempt with good success. Performed By: Marquita Martinez
[2024-02-25] VITALS (20 sets, daily range): BP systolic 106–125; BP diastolic 56–78; PULSE 70–95; RESP 17; TEMP 36.9; O2SAT 99–100
--- NOTE | 2024-02-25 00:44 | W.OBDELIVERY ---
Date of service: 02/25/24 Time of Service: 00:44 OB Labor/ Delivery Information Baby A Delivery Delivery Method: Spontaneaous Presentation: Vertex Cephalic Position: Vertex Vertex Position: Right Occipital Anterior Cord Description-Baby A: 3 Vessels Amniotic Fluid: Clear Estimated Blood Loss: 200 Delivery Outcome: Liveborn Infant Complications: none Note: FHTs 130s-140s during first stage of labor. FHTs 140s in second stage. Pitocin up to max of 4mU/min. She progressed to full dilation and pushed once. Second stage huddle was done. Spontaneous delivery of female infant delivered in PHYLICIA position. Baby was placed on mother's abdomen and dried and stimulated. Spontaneous cry. 9/9. Cord was clamped and cut by Aditya (FOCuong) at about 6 minutes of life. The placenta delivered spontaneously and appears to by intact with a three vessel cord. Pitocin was administered after delivery of the placenta. The perineum was inspected and reveals a first degree perineal laceration unrepaired.The baby did breastfeed. After delivery, Mother and baby and father of the baby were stable and bonding well in the delivery room and there were no complications. Providers Nurse Solar Project Coordination Specialist: Jennifer Rowe Newspaper Correspondent: Marquita Martinez Nurse: Tiffany Monaco Nurse: Ashleigh Armendariz Labor/Delivery Information Number of Babies in Womb: 1 Steroids Given: None Reason Steroids Not Administered: N/A Group Beta Strep: N/A Antibiotics Administered: No Rubella Status: Immune Blood Type: B+ Varicella Immunity: Immune Maternal Complications: None Shoulder Dystocia: No Stages of Labor Onset of Labor Date: 02/24/24 Onset of Labor Time: 08:25 Complete Dilatation Date: 02/25/24 Complete Dilatation Time: 00:23 Labor - Stage 1 Duration: 15 hours and 58 minutes ROM Baby A: 02/24/24 ROM Baby A: 20:33 ROM Total Time- Baby A: [id number] Delivery Date-Baby A: 02/25/24 Delivery Time-Baby A: 00:26 Labor Stage 2 Duration: 3 minutes Placenta Delivery Date-Baby A: 02/25/24 Placenta Delivery Time-Baby A: 00:35 Labor-Stage 3 Duration: 9 minutes Total Length of Labor-Baby A: 16 hours and 1 minutes Placenta Status: Delivered Baby A Gender: Female Gestational Status: Term (39-41.6 wks) Gestational Age in Weeks/Days: 39 Weeks and 3 Days Score-1 Minute Interval(Baby A) Heart Rate-1 minute: 100 BPM or Greater Respiratory Effort- 1 minute: Spontaneous/Strong Cry Muscle Tone-1 minute: Active Movement Reflex Response-1 minute: Prompt Response Color-1 minute: Bluish Hands or Feet Total Score-1 minute: 9 Score-5 Minute Interval(Baby A) Heart Rate- 5 minute: 100 BPM or Greater Respiratory Effort-5 minute: Spontaneous/Strong Cry Muscle Tone-5 minute: Active Movement Reflex Response-5 minute: Prompt Response Color-5 minute: Bluish Hands or Feet Total Score- 5 minute: 9
[2024-02-25] MEDS: Oxytocin/Normal Saline 30 UNIT/500 ML BAG 95 UNITS IV (00:57)
[2024-02-25] MEDS: Dibucaine 1% 28 GM TUBE TP (04:58)
[2024-02-25] MEDS: Ibuprofen 600 MG TAB PO ×2 (04:59→17:15)
[2024-02-25] MEDS: Acetaminophen 325 MG TAB 650 MG PO (04:59)
[2024-02-25] MEDS: Hamamelis Leaf/Glycerin 100 EACH BOX PR (04:59)
--- NOTE | 2024-02-25 13:24 | OBPPV_ITS ---
Date of service: 02/25/24 Time of Service: 13:24 Assessment and Plan Assessment and plan (1) Lactating mother: Status: Acute Assessment and plan: Caring for baby independently. Pain is managed well with oral analgesics. Voiding without difficulty. well. A - stable mother and baby , Post day 1 P - Discharge to home tomorrow morning . Subjective Subjective Interval history: Got about 4 hours of sleep after delivery with some naps this morning. infant is latching and colostrum in present. She is a confident mother, hand expressing and spoon feeding as needed per sleepy . Minimal pain managed with PO medications, voiding without difficulty, BM today. Tolerating a regular diet without issue. Dischargre teaching done Patient comments: No complaints, Pain well controlled, Tolerating diet and Bowel Movement Patient's Mood: joyous, calm [place] baby status: Doing well, Nursing well, Rooming in and Strong Bonding Observed feeding status: Exclusively breast feeding and Cup Feeding (if sleepy at breast) Exam Physical Exam Vital signs: Temp Pulse Resp BP Pulse Ox 98.5 F 91 H 17 112/68 99 02/25/24 08:40 02/25/24 08:40 02/25/24 08:40 02/25/24 08:40 02/25/24 08:40 Vital Signs Reviewed: Yes Constitutional Constitutional: no acute distress Breast Exam Bilateral: Breast Exam: Normal and Soft Nipple Exam: Normal (everted) Respiratory Exam Respiratory Exam: Normal Fundal Exam Fundus: Below Umbilicus and Firm Extremities Exam Extremity Exam: Normal and Full ROM Psychiatric Exam Psychiatric Exam: Normal Results Hemoglobin/Hematocrit: Hgb 12.5 g/dL (11.2-15.7) 02/24/24 09:00 Hct 37.0 % (36.0-46.0) 02/24/24 09:00 Abnormal Lab Findings: Abnormal Labs 02/24/24 09:00 Plt Count 125 L MPV 11.2 H
[2024-02-26 08:00] VITALS: BP 109/70; PULSE 85; RESP 16; TEMP 36.5; O2SAT 99
--- NOTE | 2024-02-26 08:51 | W.ANESPOSTOP ---
Postoperative Evaluation Date, Time and Location Date Performed: 02/26/24 Time Performed: 08:35 Patient Location: Obstetrics Vital Signs Most Recent Imported Vital Signs: Most Recent Vital Signs Temp Pulse Resp BP Pulse Ox 36.5 C 85 16 109/70 99 02/26/24 08:00 02/26/24 08:00 02/26/24 08:00 02/26/24 08:00 02/26/24 08:00 Assessment Mental Status: Awake (Alert & Oriented to Patient Baseline) Airway and Respiratory Function: Patent airway with normal (patient baseline) respiratory exam Cardiovascular Function: Hemodynamically Stable Hydration Status: Adequately Hydrated Nausea & Vomiting: No Nausea or Vomiting Pain: Pain is tolerable per patient (Patient reports muscular discomfort at the site of epidural insertion) Peripheral Nerve Block: Patient did not receive a nerve block
--- NOTE | 2024-02-26 08:51 | W.PM.OBPNV1 ---
Date of service: 02/26/24 Time of Service: 08:51 Assessment and Plan Assessment and plan (1) Lactating mother: Status: Acute Assessment and plan: Caring for baby independently. Pain is managed well with oral analgesics. Voiding without difficulty. well. A - stable mother and baby , Post day 2 P - Discharge to home, discharge teaching done. Plan 6wk PP visit and 8wk IUD insertion. Pt to schedule herself Subjective Subjective Interval history: Pain managed well. Requests refill on Pepcid rx. cluster feeding overnight. Patient's Mood: pleasant, calm [place] baby status: Doing well, Nursing well, Rooming in and Strong Bonding Observed feeding status: Exclusively breast feeding Exam Physical Exam Vital signs: Temp Pulse Resp BP Pulse Ox 97.7 F 85 16 109/70 99 02/26/24 08:00 02/26/24 08:00 02/26/24 08:00 02/26/24 08:00 02/26/24 08:00 Vital Signs Reviewed: Yes Constitutional Constitutional: no acute distress Breast Exam Bilateral: Breast Exam: Normal and Soft Respiratory Exam Respiratory Exam: Normal Cardiovascular Exam Cardiovascular Exam: Normal Fundal Exam Fundus: Below Umbilicus and Firm Exam External: Present normal urethra appearance Extremities Exam Extremity Exam: Normal and Full ROM Psychiatric Exam Psychiatric Exam: Normal Additional findings Additional findings: deffered Results Hemoglobin/Hematocrit: Hgb 12.5 g/dL (11.2-15.7) 02/24/24 09:00 Hct 37.0 % (36.0-46.0) 02/24/24 09:00 Abnormal Lab Findings: Abnormal Labs 02/24/24 09:00 Plt Count 125 L MPV 11.2 H Hemorrrhage Note IV Site Left Forearm: IV Catheter Gauge: 18
--- NOTE | 2024-02-26 08:54 | W.PM.OBDISCH ---
Date of service: 02/26/24 Time of Service: 08:54 DS: Diagnosis Discharge Diagnosis (1) Lactating mother: Status: Acute Asessment and Plan: Caring for baby independently. Pain is managed well with oral analgesics. Voiding without difficulty. well. A - stable mother and baby , Post day 2 P - Discharge to home. Routine post instructions. [facility] Discharge Plan Disposition Patient Disposition: Home Condition: Good Discharge Details Reason For Visit: IOL Admit Date/Time: 02/24/24 08:32 Admit Provider: Jennifer Rowe Attending Provider: Jennifer Rowe Primary Care Provider: Terri Melton Hospital Course Hospital Course: IOL for A1GDM, received cervical ripening with Cook's balloon and Misoprostol followed by AROM and Pitocin. of viable female Home Meds and New Rx's Prescriptions: New famotidine 20 mg Tablet 20 mg PO DAILY 90 Days Qty: 90 4RF Continued One-A-Day -1 27 mg iron- 800 mcg-235 mg capsule 1 cap PO DAILY albuterol sulfate 90 mcg/actuation HFA aerosol inhaler 1 inh inhalation ONCE lorazepam [Ativan] 0.5 mg tablet 0.5 mg PO DAILY PRN Discontinued (DME) lancets Misc See Rx Instructions .Route Qty: 100 1RF Rx Instructions: As directed 4x daily (DME) Blood Glucose Test Strip See Rx Instructions .ROUTE .MEDSUPPLY Qty: 50 1RF Rx Instructions: As directed 4x daily (DME) blood-glucose meter Kit See Rx Instructions .ROUTE .MEDSUPPLY Qty: 1 0RF Rx Instructions: As directed 4x daily No Action famotidine [Zantac-360 (famotidine)] 20 mg tablet 20 mg PO DAILY Discharge Instructions Stand Alone Forms: BC Instructions, BC Post Vaginal Deliver Activity:: Activity as Tolerated Equipment/Supplies:: No Equipment Needed Diet:: Normal Diet Discharge Orders Discharge Orders: Discharge Order (Routine); Ordered 02/26/24 Ordered By: Jennifer Rowe OB:DS Summary Summary Vaginal Delivery Method: Spontaneaous Episiotomy Description: None Laceration Description: Perineal Laceration Extension: First Degree Contraception Discussed Contraception Discussed: Yes Contraceptive Plan: IUD (8wks PP), Gender-Baby A: Female weight: 7 lb 12.976 oz Status at Discharge Functional status at discharge: independent ambulation Overall status at discharge: patient is progressing back to baseline Mental Status: mental status grossly normal Speech and Movement: speech and movement normal Mood: congruent mood Affect: normal affect Time Spent with Patient providing and/or coordinating discharge services: Less than 30 minutes Quality:SDOH Health Related Social Needs: Health related social needs details N/A Exam Physical Exam Vital signs: Temp Pulse Resp BP Pulse Ox 97.7 F 85 16 109/70 99 02/26/24 08:00 02/26/24 08:00 02/26/24 08:00 02/26/24 08:00 02/26/24 08:00 Constitutional Constitutional: no acute distress Breast Exam Bilateral: Breast Exam: Normal and Soft Respiratory Exam Respiratory Exam: Normal Cardiovascular Exam Cardiovascular Exam: Normal Fundal Exam Fundus: Below Umbilicus and Firm Exam External: Present normal urethra appearance Extremities Exam Extremity Exam: Normal and Full ROM Back/Spine/Pelvis Exam Back Exam: Normal Psychiatric Exam Psychiatric Exam: Normal Additional findings Additional findings: deffered [facility] All Active Problems (Updated 02/25/24 @ 13:36 by Jennifer Rowe CNM) Lactating mother (Acute) Gestational diabetes (Acute) Begin testing 12/16/2023 BMI 33.0-33.9,adult (Acute) Medical History 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 Depression Lexapro in the past, xanax PRN, ativan PRN during Surgical History H/O toe surgery Family History Father Hypertension Cancer sarcoma Heart murmur Maternal Grandfather Prostate cancer Maternal Uncle Prostate cancer Maternal Uncle Prostate cancer Maternal Uncle Prostate cancer Social History Smoking/Tobacco Use Status: Never Smoking risk assessment performed?: Yes Alcohol Intake: never Drug use: Never Substance use type: does not use Adopted: No Caregiver/Support person: No Foster care: No Household members: spouse and children Housing: apartment Number of Children: 1 Communication Needs: None Education Level: college Details: Bachelor's Do you need help understanding health information?: Rarely current occupation: [employer] Pets and animals: Yes (1) Pets and animals: dog(s) Sexually active: Yes Do you think of yourself as: straight/heterosexual Current gender identity: female What is your relationship status?: How often do you talk on the phone with friends or family?: three or more times per week How often do you get together with friends or relatives?: three or more times per week How often do you attend mosque or congregational services?: decline to answer Do you belong to any clubs or organized social groups?: no Panel score (0-1 are the most socially isolated patients): 2 What type of physical activity do you participate in: regular exercise Duration: 30-45 minutes/day Frequency: 3-[address]/Adventism: None Seatbelt use: always Helmet use: Yes Helmet use: always Drive intox or ride w/intox hazmat cdl a driver: No Do you feel safe at home: Yes Do you feel safe in your relationship?: Yes Female Reproductive History Menstrual Age of Menarche: 15 control method: none History History 2 Para 1 Hx # Term Pregnancies 1 Multiple births Hx # Pregnancies Ectopic pregnancies AB induced Hx Number of Living Children 1 AB spontaneous Past Pregnancies Del. Date GA/Weeks # Preg Succ Route Wgt Sex Labor Lgth Anesthesia Location [facility] 12/08/21 41 No Yes vaginal 7 lb 3 oz Female 8 [place], [place], induction of labor with misoprostol Delivery Date: 12/08/21 Last Updated by: SUSHIL Rodriguez 2 - vessel cord DS: Data Vitals/I&O Vitals and I&O: Vital Signs Temperature 97.7 F 02/26/24 08:00 Temperature Source Oral 02/26/24 08:00 Pulse 85 02/26/24 08:00 Pulse Rhythm Regular 02/26/24 08:23 Respiratory Rate 16 02/26/24 08:00 Respiratory Depth Normal 02/26/24 08:23 Blood Pressure 109/70 02/26/24 08:00 Blood Pressure Mean 83 02/26/24 08:00 Pulse Oximetry 99 02/26/24 08:00 Oxygen Delivery Method Room Air 02/24/24 08:39 Oxygen Flow Rate 0 02/24/24 08:39 Intake & Output 02/25/24 02/25/24 02/26/24 11:59 23:59 11:59 Intake Total 4.067 / 7420.279 6583 / 1004.067 Output Total 600 / 1450 850 / 1450 Balance -595.933 / -445.933 150 / -445.933 Intake: IV 4.067 / 9192.903 3049 / 1004.067 Output: Urine 400 / 1250 850 / 1250 Blood 200 / 200 Other: Urine Color Yellow Yellow Yellow
== END 2024-02-26 10:15 | disposition home or self-care (01) | DRG 807 ==
LOC: OBS 08:36
PROVIDERS: Advanced Practice Midwife; Admitting Provider Advanced Practice Midwife; PCP Nurse Practitioner Adult Health; Visit Provider Advanced Practice Midwife
DX: O24.410 Gestational diabetes mellitus in pregnancy, diet controlled (principal); Z37.0 Single live birth; Z3A.39 39 weeks gestation of pregnancy; O99.344 Other mental disorders complicating childbirth; F32.A Depression, unspecified; O70.0 First degree perineal laceration during delivery
CPT/HCPCS: 59200; 36415; 85027; 86850; 86900; 86901; J3490

== ENCOUNTER 2024-03-15 10:55 | Outpatient (CLI) | payer BC, SELFPAY ==
--- NOTE | 2024-03-15 09:15 | DI.RAD_ITS ---
Exam(s) XR CHEST 2V PA LATERAL EXAM: XR CHEST 2V PA LATERAL CLINICAL HISTORY: cough x2-3m; r/o acute process, chronic cough, R05.3 TECHNIQUE: 2D digital imaging was performed. Two views. COMPARISON: No exams were available for comparison FINDINGS: HEART: Normal size. Aorta: Not dilated. PULMONARY VASCULATURE: Normal. MEDIASTINUM: Unremarkable. LUNGS: Clear. PLEURAL SPACE: No pleural effusion or pneumothorax. BONE:Unremarkable for age. SOFT TISSUES: Unremarkable. IMPRESSION: No acute abnormality. DATA REPOSITORY: RADIATION DOSE DELIVERED:
== END 2024-03-15 11:15 ==
LOC: DI 10:56
PROVIDERS: PCP Nurse Practitioner Adult Health; Visit Provider Nurse Practitioner Adult Health
DX: R05.3 Chronic cough (principal)
CPT/HCPCS: 71046

== ENCOUNTER 2024-04-25 10:55 | Outpatient (REF) | payer BC, SELFPAY ==
--- NOTE | 2024-04-25 09:00 | PAPFT_PTH ---
PATIENT: Colleen Zee LOC: [facility] U#:[id number] AGE/SX: 33/F ROOM: RE04/25/[address]: Jennifer Rowe : 1990 BED: DIS: 04/25/2024 SPEC #: [id number] RECD: 04/25/24 12:52 STATUS: TASHA REQ #: [id number] DIGNA: 04/25/24 09:[address]: Jennifer Rowe DEPT: [facility] Cytology RECD BY: Mónica Dunham ENTERED: 04/25/24 12:52 SP TYPE: PAPFT REDD DR: Terri Melton APRN Tissues: 1 - CX/ENDOCX FOR PAP SMEARS Procedures: PAP THIN PREP/[facility] Screening HPV DNA PROBE Comments: [id number] (HPV 16 & 18/45)
== END 2024-04-25 10:56 | disposition home or self-care (01) ==
LOC: LBN 10:55
PROVIDERS: PCP Nurse Practitioner Adult Health; Visit Provider Advanced Practice Midwife
DX: Z12.4 Encounter for screening for malignant neoplasm of cervix (principal); Z01.419 Encounter for gynecological examination (general) (routine) without abnormal findings
CPT/HCPCS: 88142; 87624

== ENCOUNTER 2024-04-27 00:20 | Outpatient (CLI) | payer BC, SELFPAY ==
[2024-04-27 10:57] LABS: GTT Comment See Comments
== END 2024-04-27 00:21 | disposition home or self-care (01) ==
LOC: LBO 00:20
PROVIDERS: PCP Nurse Practitioner Adult Health; Visit Provider Advanced Practice Midwife
DX: O24.410 Gestational diabetes mellitus in pregnancy, diet controlled (principal); Z12.4 Encounter for screening for malignant neoplasm of cervix
CPT/HCPCS: 36415; 82951